=== PATIENT | male | born 1975 | race African-American/Black ===

== ENCOUNTER 2025-04-03 09:13 | Inpatient (IN) | payer OTHER ==
[2025-04-03 09:32] VITALS: BMI 28.8
[2025-04-03] MEDS ORDERED: ACETAMINOPHEN 325 MG TABLET (FP) PO PRN (09:42)
[2025-04-03] MEDS ORDERED: BENZOCAINE/MENTHOL (CHLORASEPTIC ) LOZENGE MM PRN (09:42)
[2025-04-03] MEDS: LOSARTAN POTASSIUM 50 MG TABLET PO SCH (12:54)
[2025-04-03] MEDS: PRENATAL VITAMINS W/ FOLIC ACID TABLET (FP) PO SCH (12:54)
[2025-04-03] MEDS ORDERED: BENZONATATE 200 MG CAPSULE PO PRN (13:12)
[2025-04-03] MEDS ORDERED: guaiFENesin 600 MG TABLET.ER (FP) PO PRN (13:13)
[2025-04-03] MEDS ORDERED: IBUPROFEN 400 MG TABLET (FP) PO PRN (13:13)
[2025-04-03] MEDS ORDERED: BISMUTH SUBSALICYLATE 524 MG/30 ML PO PRN (13:13)
[2025-04-03] MEDS ORDERED: IBUPROFEN 600 MG TABLET (FP) PO PRN (13:13)
[2025-04-03] MEDS ORDERED: DICYCLOMINE HCL 10 MG CAPSULE PO PRN (13:13)
[2025-04-03] MEDS ORDERED: MAGNESIUM HYDROX 2400MG/30ML ORAL SUSPENSION 30 ML CUP PO PRN (13:14)
[2025-04-03] MEDS ORDERED: MAG HYDROX/AL HYDROX/SIMETH 30 ML UNIT-DOSE CUP PO PRN (13:14)
[2025-04-03] MEDS ORDERED: LOPERAMIDE HCL 2 MG CAPSULE PO PRN (13:14)
[2025-04-03] MEDS ORDERED: NICOTINE POLACRILEX 2 MG GUM BUC PRN (13:15)
[2025-04-03] MEDS ORDERED: NALOXONE (NARCAN) HCL 4 MG/0.1 ML SPRAY NS PRN (13:15)
[2025-04-03] MEDS ORDERED: P-EPHED 60MG/TRIPROLIDI 2.5MG TABLET PO PRN (13:15)
[2025-04-03] MEDS ORDERED: ONDANSETRON *ODT* 4 MG TABLET SL PRN (13:15)
[2025-04-03] MEDS ORDERED: NICOTINE POLACRILEX 2 MG LOZENGE BC PRN (13:15)
[2025-04-03] MEDS ORDERED: POLYETHYLENE GLYCOL (HEALTHYLAX) 3350 17 GM PACKET PO PRN (13:15)
[2025-04-03] MEDS: METHOCARBAMOL 500 MG TABLET PO PRN (13:45)
[2025-04-03] MEDS: THIAMINE 100 MG TABLET PO SCH (22:25)
[2025-04-03] MEDS: hydrOXYzine PAMOATE 25 MG CAPSULE (FP) PO PRN (22:25)
[2025-04-03] MEDS: MELATONIN 5 MG TABLETS PO SCH (22:25)
[2025-04-04 08:54] VITALS: RESP 16
[2025-04-04] MEDS ORDERED: clonazePAM 0.5 MG ODT TABLETS SL PRN (09:24)
[2025-04-04 10:32] LABS: MCHC 31.1 g/dl (32.3-36.5); MEAN CELL VOLUME 93.2 fl (79.0-92.2); MEAN PLT VOLUME 11.2 fl (9.4-12.4); RDW 13.8 % (12.2-16.1)
[2025-04-04 12:07] LABS: ALK PHOS 67.0 U/L (40-150); CO2 27.0 mmol/L (21-32); GLUCOSE,RANDOM 79.0 mg/dL (74-106); TOT PROT 6.4 g/dl (6.4-8.2)
[2025-04-04 12:08] LABS: CREATININE 0.75 mg/dL (0.55-1.3); SGOT/AST 32.0 U/L (5-34); SGPT/ALT 19.0 U/L (0-55)
[2025-04-04 12:49] VITALS: BP 157/112; PULSE 68; TEMP 97.5
== END 2025-04-04 13:24 | disposition left against medical advice (07) | DRG 770 ==
LOC: YASAS 09:13 → Y6N 12:26
PROVIDERS: ADMIT Allergy & Immunology; ATTEND Allergy & Immunology
PROC: HZ2ZZZZ Detoxification Services for Substance Abuse Treatment (ICD-10-PCS; principal; 2025-04-03)
DX: F11.20 Opioid dependence, uncomplicated (principal); F14.20 Cocaine dependence, uncomplicated; F12.20 Cannabis dependence, uncomplicated; F17.210 Nicotine dependence, cigarettes, uncomplicated; I10 Essential (primary) hypertension; M54.50 Low back pain, unspecified; G89.29 Other chronic pain
CPT/HCPCS: 36415; 80053; 85027; 86780; 93005; 93010